=== PATIENT | male | born 1995 | race Caucasian/White ===

== ENCOUNTER 2018-03-29 08:39 | Emergency (ER) | payer SELFPAY ==
[2018-03-29] MEDS ORDERED: AMOXicillin 250 MG CAP ONE (09:01)
== END 2018-03-29 09:07 | disposition home or self-care (01) ==
LOC: BURERS 08:39
DX: J02.9 Acute pharyngitis, unspecified (principal); K21.9 Gastro-esophageal reflux disease without esophagitis; Z79.899 Other long term (current) drug therapy
CPT/HCPCS: 99282

== ENCOUNTER 2019-10-07 15:47 | Emergency (ER) | payer SELFPAY | END 2019-10-07 16:20 | disposition home or self-care (01) | LOC: BURERS 15:47 | DX: J02.0 Streptococcal pharyngitis (principal) | CPT/HCPCS: 99283 ==